=== PATIENT | female | born 1970 | race Two or more races ===

== ENCOUNTER 2022-04-06 08:26 | Emergency (ER) | payer MEDICAID, OTHER ==
[~2022-04-06] VITALS: Ht 170.2 cm; Wt 97.5 kg
[2022-04-06 08:41] VITALS: BP 136/74
[2022-04-06] MEDS ORDERED: ACETAMINOPHEN/CODEINE#3 (300/30mg) TAB PO ONE (09:30)
[2022-04-06] MEDS ORDERED: ACE3T PO (09:31)
== END 2022-04-06 09:50 | disposition home or self-care (01) ==
LOC: ER 08:26
DX: S92.355A Nondisplaced fracture of fifth metatarsal bone, left foot, initial encounter for closed fracture (principal); I10 Essential (primary) hypertension; F17.210 Nicotine dependence, cigarettes, uncomplicated; Z79.899 Other long term (current) drug therapy; X50.1XXA Overexertion from prolonged static or awkward postures, initial encounter; Y93.89 Activity, other specified; Y92.89 Other specified places as the place of occurrence of the external cause; Y99.8 Other external cause status
CPT/HCPCS: 29515; 73630